=== PATIENT | female | born 2000 | race Caucasian/White ===

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

== ENCOUNTER 2019-02-15 08:05 | Emergency (ER) | payer BC ==
[~2019-02-15] VITALS: Ht 167.7 cm; Wt 88.9 kg
[~2019-02-15 08:05] MED LIST: CEFD300C3 PO
[2019-02-15 08:52] LABS: BILIRUBIN,URINE NEGATIVE (NEGATIVE); COLOR,URINE YELLOW; GLUCOSE, URINE (UA) NEGATIVE (NEGATIVE); KETONES,URINE NEGATIVE (NEGATIVE); LEUKOCYTE ESTERASE ,URINE 3+ (NEGATIVE); NITRITE,URINE NEGATIVE (NEGATIVE); PH,URINE 8 (5-9); PROTEIN,URINE NEGATIVE (NEGATIVE); UROBILINOGEN,URINE NORMAL (NORMAL)
[2019-02-15 09:01] LABS: CLARITY,URINE CLOUDY
[2019-02-15 09:02] LABS: BACTERIA,URINE FEW /HPF; RBC,URINE 0-2 /HPF
--- NOTE | 2019-02-15 09:20 | ED Abdominal Pain ---
General Chief Complaint: General Problems/Pain Stated Complaint: LEFT SIDE PAIN Nursing Triage Note: AMB TO ROOM WITH MOTHER. PATIENT REPORTS THAT HE HAS HAD A PINCHING FEELING IN L RIB AREA REPORTS IT COMES AND GOES ONSET 3 DAYS AGO. Sepsis Screen: No Definite Risk Source of Information: Patient Exam Limitations: No Limitations (NAHOMI HUERTA STUDENT) History of Present Illness Date Seen by Provider: Feb 15, 2019 Time Seen by Provider: 08:30 Initial Comments The patient is a WD/WN 18 y/o female who is here today with a chief complaint of left side abdominal pain. She states that she has been having pain for 3-4 days that is 2-3/10, sharp, pinching, and intermittent. She denies any previous occurrences. She has also been experiencing nausea without vomiting for the past day. She denies fever, diarrhea, or constipation. She denies any problems with urination. (NAHOMI HUERTA STUDENT) Timing/Duration: 3-4 Days, Changing Over Time, Intermittent Severity/Quality: Mild, Aching, Sharp Location: Flank (left and right) Radiation: Back (lower) Activities at Onset: None Associated Symptoms: Back Pain; No Fever/Chills; Nausea/Vomiting; No Weakness (CRISS OWENS MD) Allergies and Home Medications Allergies Coded Allergies: No Known Drug Allergies (Unverified , 10/06/17) Home Medications No Active Prescriptions or Reported Meds Patient Home Medication List Home Medication List Reviewed: Yes (CRISS OWENS MD) Review of Systems Review of Systems Constitutional: No fever, No malaise EENTM: No Blurred Vision, No Double Vision Respiratory: Denies Cough, Denies Shortness of Air Cardiovascular: Denies Chest Pain, Denies Palpitations Gastrointestinal: Abdominal Pain; Denies Constipated, Denies Diarrhea; Nausea Genitourinary: Denies Frequency, Denies Urgency (NAHOMI HUERTA STUDENT) Gastrointestinal: Abdominal Pain, Nausea Genitourinary: No Symptoms Reported Musculoskeletal: no symptoms reported Skin: no symptoms reported Psychiatric/Neurological: No Symptoms Reported (CRISS OWENS MD) Past Ulmpodh-Iavkgw-Mmnlua Hx Past Med/Social Hx: Reviewed Nursing Past Med/Soc Hx (CRISS OWENS MD) Patient Social History Alcohol Use: Denies Use Recreational Drug Use: No Smoking Status: Never a Smoker 2nd Hand Smoke Exposure: No Recent Foreign Travel: No Contact w/Someone Who Travel: No Recent Infectious Disease Expo: No Recent Hopitalizations: No (NAHOMI HUERTA Tech urSelf STUDENT) Seasonal Allergies Seasonal Allergies: No (NAHOMI HUERTA Tech urSelf YOBANY) Past Medical History Surgeries: Yes Tonsillectomy Respiratory: No Cardiac: No Neurological: No Gastrointestinal: No Musculoskeletal: No Endocrine: Yes (pt states thyroid swells) Cancer: No Psychosocial: No Integumentary: No Blood Disorders: No Adverse Reaction/Blood Tranf: No (NAHOMI HUERTA Tech urSelf STUDENT) Family Medical History Reviewed Nursing Family Hx (CRISS OWENS MD) Physical Exam Vital Signs Vital Signs - First Documented 02/15/19 08:09 Temp 35.6 Pulse 86 Resp 18 B/P (MAP) 137/80 (99) Pulse Ox 100 O2 Delivery Room Air (CRISS OWENS MD) Vital Signs Capillary Refill : Less Than 3 Seconds (NAHOMI HUERTA Tech urSelf STUDENT) Height/Weight/BMI Height: 5'6.00" Weight: 207lbs. oz. 93.257137sd; 31.00 BMI Method:Stated General Appearance: WD/WN, no apparent distress Respiratory: chest non-tender, lungs clear, normal breath sounds Cardiovascular: regular rate, rhythm, no edema, no murmur Gastrointestinal: normal bowel sounds, soft, tenderness Neurologic/Psychiatric: alert, normal mood/affect, oriented x 3 Skin: normal color, warm/dry (NAHOMI HUERTA Tech urSelf STUDENT) General Appearance: WD/WN, no apparent distress Respiratory: lungs clear, normal breath sounds Cardiovascular: regular rate, rhythm, no edema Gastrointestinal: soft, tenderness (mild reported to the flanks on left and right but no significant abdominal tenderness on exam otherwise.) Extremities: non-tender, normal inspection Neurologic/Psychiatric: alert, oriented x 3 Skin: normal color, warm/dry (CRISS OWENS MD) Progress/Results/Core Measures Results/Orders Lab Results Laboratory Tests Test 02/15/19 08:44 Range/Units Urine Color YELLOW Urine Clarity CLOUDY Urine pH 8 5-9 Urine Specific [place] 1.010 L 1.016-1.022 Urine Protein NEGATIVE NEGATIVE Urine Glucose (UA) NEGATIVE NEGATIVE Urine Ketones NEGATIVE NEGATIVE Urine Nitrite NEGATIVE NEGATIVE Urine Bilirubin NEGATIVE NEGATIVE Urine Urobilinogen NORMAL NORMAL MG/DL Urine Leukocyte Esterase 3+ H NEGATIVE Urine RBC (Auto) 1+ H NEGATIVE Urine RBC 0-2 /HPF Urine WBC 5-10 H /HPF Urine Squamous Epithelial Cells 2-5 /HPF Urine Crystals NONE /LPF Urine Bacteria FEW H /HPF Urine Casts NONE /LPF Urine Mucus NEGATIVE /LPF Urine Culture Indicated YES (CRISS OWENS MD) My Orders Orders - CRISS OWENS MD Ua Culture If Indicated (02/15/19 08:32) Urine Bedside (02/15/19 08:32) Urine Culture (02/15/19 08:44) (CRISS OWENS MD) Vital Signs/I&O 02/15/19 08:09 Temp 35.6 Pulse 86 Resp 18 B/P (MAP) 137/80 (99) Pulse Ox 100 O2 Delivery Room Air (CRISS OWENS MD) Blood Pressure Mean: 99 Progress Progress Note : Time: 09:05 Progress Note The patient is resting comfortably in the exam room. She will have urinalysis for possible UTI. (NAHOMI HUERTA MED STUDENT) Progress Note : Progress Note I have seen and evaluated the patient and agree with above except as indicated. Return to plan of care. Patient has vague lateral intermittent pain that is not really significant currently. Denies dysuria, diarrhea or bowel problems. Never had anything like this before. Does not remember any specific injury. We will check UA. This was positive for white blood cells and bacteria indicating possible urinary tract infection. This could be part of the problem. We will go ahead and treat that outpatient. No other findings currently that are si gnificant enough to cause further evaluation and patient and family agree. Discharged home with return precautions. Patient and family verbalize understanding of instructions and agreement with plan. (CRISS OWENS MD) Departure Impression Primary Impression: Urinary tract infection Qualified Codes: N30.00 - Acute cystitis without hematuria Disposition: HOME, SELF-CARE Condition: Improved Departure-Patient Inst. Decision time for Depature: 09:40 (CRISS OWENS MD) Referrals: [facility] (PCP) Primary Care Physician CARLOTA HOFFMAN MD (Family) Primary Care Physician Patient Instructions: Urinary Tract Infection, Adult (DC) Add. Discharge Instructions: All discharge instructions reviewed with patient and/or family. Voiced understanding. You may take ibuprofen 600 mg every 8 hours as needed for pain. You may take Tylenol/acetaminophen 1000 mg every 8 hours as needed for pain.. Drink plenty of fluids. Follow-up with your Dr. in a few days for recheck. Take medications as directed. Return for worse pain, fever, vomiting, weakness, breathing problems or other concerns as needed. Scripts Cephalexin (Cephalexin) 500 Mg Tablet 500 MG PO BID, #10 TAB 0 Refills Prov: CRISS OWENS MD 02/15/19 NAHOMI HUERTA MED STUDENT Feb 15, 2019 09:20 CRISS OWENS MD Feb 15, 2019 09:41
[2019-02-15] MEDS ORDERED: CEPH500T PO (09:41)
[2019-02-15 09:55] VITALS: BP 137/80
== END 2019-02-15 09:55 | disposition home or self-care (01) ==
LOC: EDUNIT# 08:05 → ER 08:07
DX: N39.0 Urinary tract infection, site not specified (principal); Z90.89 Acquired absence of other organs
CPT/HCPCS: 81000; 84703; 87077; 87088; 99282

== ENCOUNTER 2019-11-02 14:20 | Emergency (ER) | payer BC ==
[~2019-11-02] VITALS: Ht 167 cm; Wt 88.9 kg
[~2019-11-02 14:20] MED LIST changes: +CEPH500T PO
[2019-11-02 14:37] VITALS: BP 153/81
--- NOTE | 2019-11-02 14:42 | ED Upper Extremity ---
General Stated Complaint: LEFT HAND FINGER INJ Source: patient Exam Limitations: no limitations History of Present Illness Date Seen by Provider: Nov 02, 2019 Time Seen by Provider: 14:40 Initial Comments To ER with worsening to the left ring and pinky finger after it was caught between the tongue of a trailer and the hitch on a truck while trying to attach the truck to the trailer. Onset: just prior to arrival Severity: moderate (.) Pain/Injury Location: left 4th finger, left 5th finger Method of Injury: direct blow Modifying Factors: Worse With Movement Allergies and Home Medications Allergies Coded Allergies: No Known Drug Allergies (Unverified , 10/06/17) Home Medications Cephalexin 500 Mg Tablet, 500 MG PO BID Prescribed by: CRISS OWENS on 02/15/19 0941 Patient Home Medication List Home Medication List Reviewed: Yes Review of Systems Constitutional: see HPI EENTM: see HPI Respiratory: no symptoms reported Cardiovascular: no symptoms reported Genitourinary: no symptoms reported Musculoskeletal: see HPI Skin: no symptoms reported Psychiatric/Neurological: No Symptoms Reported Past Wxrgifa-Goivcg-Ohshna Hx Patient Social History 2nd Hand Smoke Exposure: No Recent Hopitalizations: No Seasonal Allergies Seasonal Allergies: No Past Medical History Surgeries: Yes Tonsillectomy Respiratory: No Cardiac: No Neurological: No Gastrointestinal: No Musculoskeletal: No Endocrine: Yes (pt states thyroid swells) Cancer: No Psychosocial: No Integumentary: No Blood Disorders: No Adverse Reaction/Blood Tranf: No Physical Exam Vital Signs Capillary Refill : Height, Weight, BMI Height: 5'6.00" Weight: 207lbs. oz. 93.343166ek; 31.00 BMI Method:Stated General Appearance: WD/WN, no apparent distress HEENT: PERRL/EOMI, normal ENT inspection Neck: non-tender, full range of motion Respiratory: no respiratory distress, no accessory muscle use Gastrointestinal: normal bowel sounds, non tender Elbow/Forearm: normal inspection, non-tender Wrist: Yes normal inspection, Yes non-tender Hand: Left, swelling (swelling ecchymosis to the proximal phalanx of the ring and pinky finger, no open wounds or obvious dislocation/deformity) Neurologic/Psychiatric: alert, normal mood/affect, oriented x 3 Skin: normal color, warm/dry Progress/Results/Core Measures Results/Orders My Orders Orders - GUS LOWE APRN Hand, Left, 3 Views (11/02/19 14:38) Departure Impression Primary Impression: Contusion of hand Disposition: 01 HOME, SELF-CARE Condition: Stable Departure-Patient Inst. Decision time for Depature: 14:55 Referrals: [facility] (PCP) Primary Care Physician SELF,CARLOTA MARS (Family) Primary Care Physician Patient Instructions: Contusion (DC) Add. Discharge Instructions: 1. Ice to the area 2. Tylenol and ibuprofen for pain. Use ice for 30 minutes at a time a couple of times a day for the next 2-3 days. GUS LOWE APRN Nov 02, 2019 14:42
--- NOTE | 2019-11-02 14:57 | Diagnostic Imaging Report ---
INDICATION: Injury to left hand. EXAMINATION: AP, oblique and lateral views of the left hand were obtained. FINDINGS: No fracture or acute bony abnormality is seen. Joint spaces are unremarkable. IMPRESSION: Negative left hand. Dictated by: Dictated on workstation # [id number]
--- OUTSIDE RECORDS SUMMARY | 2019-11-02 18:02 | XMS REPORT | Continuity of Care Document ---
Demographics Preferred Language Unknown Marital Status Unknown Catholic Affiliation Unknown Race Unknown Ethnic Group Unknown Author Organization Unknown Address Unknown Phone Unavailable Allergies Active Description Code Type Severity Reaction Onset Reported/Identified Relationship to Patient Clinical Status Yes No Known Drug Allergies [id number] Drug Allergy Unknown N/A 10/06/2017 Medications There is no data. 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 Results Test Result Range TSH+Free T4 - 06/05/16 09:46 TSH 3.270 uIU/mL 0.450-4.500 T4,Free(Direct) 1.23 ng/dL 0.93-1.60 CBC With Differential/Platelet - 7 09:46 WBC 4.9 x10E3/uL 3.4-10.8 RBC 4.63 x10E6/uL 3.77-5.28 Hemoglobin 13.2 g/dL 11.1-15.9 Hematocrit 39.0 % 34.0-46.6 MCV 84 fL 79-97 MCH 28.5 pg 26.6-33.0 MCHC 33.8 g/dL 31.5-35.7 RDW 13.3 % 12.3-15.4 Platelets 258 x10E3/uL 150-379 Neutrophils 56 % Lymphs 33 % Monocytes 8 % Eos 3 % Basos 0 % Neutrophils (Absolute) 2.7 x10E3/uL 1.4- 7.0 Lymphs (Absolute) 1.6 x10E3/uL 0.7-3.1 Monocytes(Absolute) 0.4 x10E3/uL 0.1-0.9 Eos (Absolute) 0.1 x10E3/uL 0.0-0.4 Baso (Absolute) 0.0 x10E3/uL 0.0-0.3 Immature Granulocytes 0 % Immature Grans (Abs) 0.0 x10E3/uL 0.0-0. 1 Comp. Metabolic Panel (14) - 06/05/16 09 :46 Glucose, Serum 83 mg/dL 65-99 BUN 13 mg/dL 5-18 Creatinine, Serum 0.61 mg/dL 0.57-1.00 eGFR If NonAfricn Am TNP mL/min/1.73 eGFR If Africn Am TNP mL/min/1.73 BUN/Creatinine Ratio 21 9-25 Sodium, Serum 142 mmol/L 134-144 Potassium, Serum 4.7 mmol/L 3.5-5.2 Chloride, Serum 102 mmol/L 96-106 Carbon Dioxide, Total 24 mmol/L 18-29 Calcium, Serum 9.2 mg/dL 8.9-10.4 Protein, Total, Serum 6.7 g/dL 6.0-8.5 Albumin, Serum 4.5 g/dL 3.5-5.5 Globulin, Total 2.2 g/dL 1.5-4.5 A/G Ratio 2.0 1.1-2.5 Bilirubin, Total 0.2 mg/dL 0.0-1.2 Alkaline Phosphatase, S 55 IU/L 45-101 AST (SGOT) 20 IU/L 0-40 ALT (SGPT) 18 IU/L 0-24 Lipid Panel - 06/05/16 09:46 Cholesterol, Total 149 mg/dL 100-169 Triglycerides 61 mg/dL 0-89 HDL Cholesterol 52 mg/dL >39 VLDL Cholesterol Juma 12 mg/dL 5-40 LDL Cholesterol Calc 85 mg/dL 0-109 Urine Culture, Routine - 12/12/16 15:09 Urine Culture, Routine Note CULTURE, ANAEROBIC AND AEROBIC - 9 15:26 CULTURE, ANAEROBIC BACTERIA W/GRAM STAIN SEE NOTE NRG CULTURE, AEROBIC BACTERIA SEE NOTE NRG Complete urinalysis with reflex to cultu re - 02/15/19 08:44 Urine color determination YELLOW NRG Urine clarity determination CLOUDY NR G Urine pH measurement by test strip 8 5-9 Specific gravity of urine by test strip 1.010 1.016-1.022 Urine protein assay by test strip, semi-quantitative NEGATIVE NEGATIVE Urine glucose detection by automated test strip NE GATIVE NEGATIVE Erythrocytes detection in urine sediment by light micr oscopy 1+ NEGATIVE Urine ketones detection by automated test strip NE GATIVE NEGATIVE Urine nitrite detection by test strip NEGATIVE NEGATIVE Urine total bilirubin detection by test strip NEGA TIVE NEGATIVE Urine urobilinogen measurement by automated test strip (mass/volume) NORMAL NORMAL Urine leukocyte esterase detection by dipstick 3+ NEGATIVE Automated urine sediment erythrocyte cou nt by microscopy (number/high power field) [HPF] NRG Automated urine sediment leukocyte count by microscopy (number/high power field) [HPF] NRG Bacteria detection in urine sediment by light microsco py FEW NRG Squamous epithelial cells detection in u rine sediment by light microscopy 2-5 NRG Crystals detection in urine sediment by light microsco py NONE NRG Casts detection in urine sediment by light microscopy NONE NRG Mucus detection in urine sediment by light microscopy NEGATIVE NRG Complete urinalysis with reflex to culture YES NRG Bacterial urine culture - 02/15/19 08:44 Bacterial urine culture [id number] NRG COLONY COUNT >100,000/ML NRG FTX;REPORTABLE SEE COMMENTS NRG Encounters ACCT No. Visit Date/Time Discharge Status Pt. Type Provider Facility Loc./Unit Complaint [id number] 06/06/2016 07:05:00 Document Registration [id number] 12/14/2016 16:05:00 Document Registration [id number] 11/02/2019 14:21:00 020 15:20:00 DIS Emergency GUS LOWE APRN [facility] ER LEFT HAND FINGER INJ [id number] 02/15/2019 08:07:00 019 09:55:00 DIS Emergency CRISS OWENS MD [facility] ER LEFT SIDE PAIN [id number] 10/06/2017 08:44:00 018 09:57:00 DIS Emergency GRACIELA MARS, CRISS Alas [facility] ER HEAD Evelyn CONNER HROAT CLOSING UP [id number] 08/17/2018 14:15:00 08/17/2018 23:59: 59 CLS Outpatient DOLORES HUBBARD APRN [facility] [id number] 08/17/2018 14:15:00 Document Registration
== END 2019-11-02 15:20 | disposition home or self-care (01) ==
LOC: EDUNIT# 14:20 → ER 14:21
DX: S60.042A Contusion of left ring finger without damage to nail, initial encounter (principal); S60.022A Contusion of left index finger without damage to nail, initial encounter; V69.3XXA Occupant (driver) (passenger) of heavy transport vehicle injured in unspecified nontraffic accident, initial encounter
CPT/HCPCS: 29130; 73130

== ENCOUNTER 2021-03-19 11:13 | Outpatient (RCR) | payer OTHER | END 2021-03-19 13:25 | disposition home or self-care (01) | PROVIDERS: ATTEND Family Medicine | DX: M79.641 Pain in right hand (principal); R20.0 Anesthesia of skin; W54.0XXS Bitten by dog, sequela ==